=== PATIENT | female | born 2000 | race Caucasian/White ===

== ENCOUNTER 2022-03-17 07:40 | Emergency (ER) | payer MEDICAID, SELFPAY ==
[2022-03-17 07:47] VITALS: BP 130/69; PULSE 108; RESP 16; TEMP 36.8; O2SAT 98; BMI 44.2
[2022-03-17 07:54] VITALS: BP 130/69; PULSE 108; RESP 16; TEMP 36.8; O2SAT 98
--- NOTE | 2022-03-17 07:56 | ED.URI ---
HPI - URI/Sore Throat General Chief Complaint: Upper Respiratory Symptoms Stated Complaint: sorethroat Time Seen by Provider: 03/17/22 07:42 Source: patient Mode of arrival: ambulatory Limitations: no limitations History of Present Illness MD elicited complaint: sore throat Pertinent past history: other (tonsillitis) Onset (ago): day(s) (2) Consistency: constant Severity: moderate Description of mucous: clear Able to tolerate fluids by mouth: Yes Exacerbating factors: swallowing Relieving factors: nothing Context: other (hx of prior tonsillitis in the past) Associated symptoms: denies other symptoms Treatments prior to arrival: none Related Data Previous Rx's Medication Instructions Recorded amoxicillin 500 mg tablet 500 mg PO BID 10 Days #20 tab 03/17/22 Allergies Allergy/AdvReac Type Severity Reaction Status Date / Time No Known Allergies Allergy Verified 03/17/22 07:50 Review of Systems Review of Systems: Constitutional : no Fever, no Chills, no fatigue, no Malaise ENT/Mouth : positive sore throat, no runny nose Eyes: No Discharge Cardiovascular : No Chest Pain, No SOB Respiratory : No Cough, No Sputum Gastrointestinal : No Nausea, No Vomiting, No Diarrhea Genitourinary : No Dysuria, No Urinary Frequency Musculoskeletal : no Myalgia Skin : No rash Neuro : No Headache PMFSH Past Medical History Attestation statement: The following information was validated with the patient. Medical History Tonsillitis Social History Social History (Updated 03/17/22 @ 08:06 by Stephanie See DO) Patient Tobacco Use Status: Current everyday Tobacco user Advance Directives: No Advance Directives Information Provided: No Patient : No Physical Exam Vital Signs: Vital Signs: Last Vital Signs Temp 98.2 F 03/17/22 07:54 Pulse 108 H 03/17/22 07:54 Resp 16 03/17/22 07:54 BP 130/69 03/17/22 07:54 Pulse Ox 98 03/17/22 07:54 BMI result Body Mass Index 44.2 Appearance: Alert. Oriented X3. No acute distress. Eyes: Pupils equal, round and reactive to light. ENT: Pharynx moderate swelling of the tonsils not touching, uvula midline, patches noted - tolerating secretions, normal voice Neck: Normal inspection. Neck supple. CVS: Normal heart rate and rhythm. Pulses normal. Respiratory: No respiratory distress. Breath sounds normal. Abdomen: Soft and non-tender. Skin: Skin warm and dry. Normal skin color. Extremities: No lower extremity edema. Neuro: Oriented X 3. No motor deficit. No sensory deficit. MDM - URI/Sore Throat MDM Narrative Medical decision making narrative: 22 yo female hx of tonsillitis here with swelling and white patches no signs of [employer], no signs of deeper space infection - at this time will need strep swab, covid/flu swab and start on amoxicillin. Lab Data Labs: Lab Results 03/17/22 03/17/22 03/17/22 Range/Units 08:01 08:01 08:01 COVID-19 ([facility]) Negative (Negative) COVID-19 Clin Com See Note Influenza Type A ([facility]) Negative (Negative) Influenza Type B ([facility]) Negative (Negative) Influenza A & B Note See Note S. pyogenes GrpA [facility] Negative (Negative) Discharge Plan Discharge Clinical Impression: Acute tonsillitis Patient Disposition: Home, Self-Care Instructions: Tonsillitis (ED) Additional Instructions: return to ED for any worsening symptoms or concerns negative for flu and covid strep negative but tonsillitis can be caused by other bacteria please take antibiotics Prescriptions: New amoxicillin 500 mg tablet 500 mg PO BID 10 Days Qty: 20 0RF
[2022-03-17] MEDS: Amoxicillin 500 MG CAPSULE PO (08:17)
[2022-03-17 08:22] LABS: IDNOW Serial# 08D9AD1C; Strep A Nucleic Acid Negative (Negative)
[2022-03-17 08:26] LABS: COVID-19 Test Negative (Negative); IDNOW Serial# 16C4AD1C; Influenza A Negative (Negative); Influenza B2 Negative (Negative)
== END 2022-03-17 09:05 | disposition home or self-care (01) ==
PROVIDERS: Emergency Provider Emergency Medicine
DX: J03.90 Acute tonsillitis, unspecified (principal); Z20.822 Contact with and (suspected) exposure to COVID-19
CPT/HCPCS: 87502; 87635; 87651; 99283

== ENCOUNTER 2022-05-16 11:09 | Emergency (ER) | payer MEDICAID, SELFPAY ==
[2022-05-16 11:18] VITALS: BP 116/64; PULSE 76; RESP 18; TEMP 36.1; O2SAT 98; BMI 42.5
--- NOTE | 2022-05-16 11:48 | ED_ITS ---
HPI - General Adult General Chief complaint: Extremity Injury, Lower Stated complaint: R foot/ankle pain Time Seen by Provider: 05/16/22 11:48 Source: patient Mode of arrival: ambulatory Limitations: no limitations History of Present Illness HPI narrative: Patient is a 22 year old female presenting to the emergency department today with chronic right ankle pain. Patient states that a few months ago, she fell down the stairs and hurt her right ankle. 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 Patient denies any dizziness, lightheadedness, abdominal pain, nausea, vomiting, fever, chills, blurry vision, double vision, loss of vision, chest pain, difficulty breathing, shortness of breath, back pain, night sweats, pain with urination, increased urinary frequency, increased urinary urgency, blood in her urine or stool, syncope or a near syncopal episode, recent trauma or falls, bowel incontinence, bladder incontinence, bowel retention, bladder retention, or any other complaints at this time. Onset (ago): month(s) Location: right and lower extremity (ankle) Radiation: non-radiation Severity: mild Severity scale (1-10): 2 Quality: dull Pain Consistency: constant Relieving factors: none Exacerbating factors: movement Associated symptoms: denies other symptoms Treatments prior to arrival: none Related Data Previous Rx's Medication Instructions Recorded amoxicillin 500 mg tablet 500 mg PO BID 10 days #20 tabs 03/17/22 Allergies Allergy/AdvReac Type Severity Reaction Status Date / Time No Known Allergies Allergy Verified 03/17/22 07:50 Review of Systems Constitutional: Constitutional: Reports no additional constitutional complaints, Denies chills, Denies fever(s) and Denies night sweats Eyes: Eyes: Reports no additional eye complaints, Denies blurry vision, Denies change in vision, Denies diplopia, Denies eye discharge, Denies loss of vision and Denies eye pain ENT: Denies dizziness Cardiovascular: Cardiovascular: Reports no additional cardiovascular complaints, Denies chest pain, Denies lightheadedness, Denies Loss of Consciousness and Denies dyspnea Respiratory: Respiratory: Reports no additional respiratory complaints and Denies dyspnea Gastrointestinal: Gastrointestinal: Reports no additional gastrointestinal complaints, Denies abdominal pain, Denies melena, Denies hematochezia, Denies change in bowel habits and Denies change in stool character Genitourinary: Genitourinary: Denies hematuria, Denies urinary frequency, Denies dysuria, Denies urinary incontinence, Denies urinary hesitancy and Denies urinary urgency Musculoskeletal: Musculoskeletal: Reports no additional musculoskeletal complaints, Denies numbness and Denies tingling Comments: right ankle pain Neurologic: Denies dizziness, Denies loss of vision, Denies numbness and Denies tingling Psychiatric: Psychiatric: Reports no additional psychiatric complaints Endocrine: Endocrine: Reports no additional endocrine complaints Hematologic/Lymphatic: Hematologic/Lymphatic: Reports no additional hematologic/lymphatic complaints Allergic/Immunologic: Allergic/Immunologic: Reports no additional allergic/immunologic complaints PMFSH Past Medical History Attestation statement: The following information was validated with the patient. Source: old records reviewed Medical History Tonsillitis Social History Social History Patient Tobacco Use Status: Current everyday Tobacco user Physical Exam ED Vital Signs: Vital Signs - 24 hr 05/16/22 11:18 Temperature 96.9 F Pulse Rate 76 Respiratory Rate 18 Blood Pressure 116/64 Pulse Oximetry 98 Oxygen Delivery Method Room Air BMI result Body Mass Index 42.5 Const General: cooperative, no acute distress, alert and awake Nutritional Appearance: well nourished Orientation/consciousness: patient oriented x3 Limitations: no limitations HENMT Head: Yes normal to inspection and Yes atraumatic Ears: hearing grossly normal bilaterally and external ears normal General nose exam: Normal external nose present, no nasal discharge noted and no epistaxis Face and sinus: Yes normal facial exam, No abrasion and No laceration Mouth: Normal oral and palatal mucosa present, no drooling and no muffled voice Eyes General: appearance normal, both eyes and all related structures Periorbital: periorbital findings normal Eyelids: Yes eyelids normal Conjunctivae: conjunctivae normal Pupils: Equal, round and reactive pupils present EOM: EOMs intact bilaterally Neck Neck: Yes normal visual inspection, Yes full ROM and Yes no lymphadenopathy Chest Chest palpation & inspection: normal inspection of the chest Resp Effort & Inspection: normal respiratory effort and able to speak in complete sentences Auscultation: clear to auscultation bilaterally Cardio Rate: regular rate Rhythm: regular rhythm GI Inspection: Yes normal to inspection Neuro General: patient oriented x3 and moves all extremities Cranial nerves: Yes Equal, round and reactive pupils present Cognition (Neuro): normal cognition Motor exam (neuro): 5/5 motor strength present throughout Sensory Exam: Normal double simultaneous stimulation for sensation Coordination: [id number] test normal Extrem General: Yes normal to inspection, Yes full ROM and Yes capillary refill normal Psych Appearance: grossly normal Mental Status: mental status grossly normal Affect: normal affect Attitude: cooperative Thought process: Normal thought process present Thought content: Normal thought content present Insight: Good insight present (Psych) Procedures Orthopedic Splinting/Casting Injury #1: Side: right Lower Extremity Injury Location: ankle Lower Extremity Immobilizer: boot orthosis Medical Decision Making MDM Narrative Medical decision making narrative: Patient is a 22 year old female presenting to the emergency department today with right ankle pain. Patient's physical exam was unremarkable. I explained my physical exam findings to the patient. I answered all questions asked by the patient. Patient's foot was placed in a walking boot, without incident. Patient's PMS was intact prior to and after boot placement. I stressed the importance of the patient taking her medication as prescribed. I stressed the importance of the patient following up with her primary care provider and an orthopedic provider. I stressed the importance of the patient returning to the emergency department immediately if her symptoms were to worsen or if she were to develop any dizziness, shortness of breath, difficulty breathing, chest pain, blurry vision, loss of vision, nausea, vomiting, abdominal pain, fever, chills, back pain, or any other complaints. Patient verbalized agreement and understanding with this treatment plan and discharge. Differential Diagnosis Differential Diagnosis: ankle pain Medical Records Medical records reviewed: Yes I reviewed the patient's medical records. Discharge Plan Discharge Clinical Impression: Ankle pain, chronic Patient Disposition: Home, Self-Care Instructions: Ankle Sprain (ED) Additional Instructions: Follow up with your primary care provider. Return to the emergency department immediately if your symptoms worsen or if you develop any dizziness, shortness of breath, difficulty breathing, chest pain, blurry vision, loss of vision, nausea, vomiting, abdominal pain, fever, chills, back pain, or any other complaints. Prescriptions: No Action amoxicillin 500 mg tablet 500 mg PO BID 10 Days Qty: 20 0RF Referrals: [facility] [place] Family Medicine [Provider Group] (Call to establish and follow up with a primary care provider. If you already have one, please follow up with them. ) [facility] [place] Primary Care, Gunnar [Provider Group] (Call to establish and follow up with a primary care provider. If you already have one, please follow up with them. ) [facility] [place] Primary Care,Abhilash [Provider Group] (Call to establish and follow up with a primary care provider. If you already have one, please follow up with them. ) [facility] [place] Orth[facility] Surgeons [Provider Group] (Call to establish and follow up with an orthopedic provider. ) Stand Alone Forms: Work/School Release Print Language: German
== END 2022-05-16 12:48 | disposition home or self-care (01) ==
PROVIDERS: Emergency Provider Emergency Medicine Emergency Medical Services
DX: M25.571 Pain in right ankle and joints of right foot (principal)
CPT/HCPCS: 99282

== ENCOUNTER 2022-09-05 19:53 | Emergency (ER) | payer OTHER, SELFPAY ==
--- NOTE | ~2022-09-05 | US_ITS ---
EXAMINATION: US VENOUS ULTRASOUND WITH DOPPLER LOWER EXTREMITY, LEFT CLINICAL INFORMATION: Pain and swelling COMPARISON: None TECHNIQUE: Ultrasound of the deep veins is performed from the hip to the calf with compression sonography and color and pulse Doppler assessment. Spectral analysis with color-flow imaging is performed. FINDINGS: There is normal venous compression and respiratory variation and augmented flow. The visualized common femoral vein, superficial femoral vein, profunda femoral vein, popliteal vein, and the trifurcation region shows no evidence of deep venous thrombosis. There is no significant popliteal fossa cyst. If the patient's symptoms persist, followup ultrasound in 5 days 7 days might be of value to exclude proximal propagation from a non-visualized calf vein. US/US venous duplex LE LT IMPRESSION: No DVT demonstrated in the left lower extremity.
[2022-09-05 20:04] VITALS: BP 112/60; PULSE 82; RESP 18; TEMP 36.2; O2SAT 98; BMI 40.7
--- NOTE | 2022-09-05 20:29 | ED.EXTPRO ---
HPI - Extremity Problem General Chief complaint: Extremity Problem Stated complaint: left leg pain Time Seen by Provider: 09/05/22 20:17 Source: patient Mode of arrival: ambulatory Limitations: no limitations History of Present Illness HPI Narrative: 22-year-old female with a history of sciatica presents the emergency department with left calf pain & left foot numbness and tingling x 1 week. Patient states she was standing at work and felt her leg give out, however she did not fall to the ground. Patient states that the numbness and tingling is throughout her entire left foot and extends to the ankle. She rates her pain as a 10/10. Additionally she has shooting pain throughout her left lower extremity and into her back, she tells me this feels sort of like her typical sciatica. Patient states she has tried [id number] medication, heat, ice, ointment with no symptom relief. Patient denies fever, chest pain, shortness of breath, dizziness, nausea, vomiting, saddle paresthesias, bladder/bowel incontinence/retention, weakness. Patient denies hx of blood clots, recent travel, blood thinners, OCPs, non smoker, no known hypercoagulable disorders. Additionally, patient concern for gonorrhea and Chlamydia, she tells me she is currently sexually active and is concerned her partner may have something. She denies any symptoms at this time however would like treatment for gonorrhea and chlamydia. She would not like a pelvic exam. Related Data Previous Rx's Medication Instructions Recorded amoxicillin 500 mg tablet 500 mg PO BID 10 days #20 tabs 03/17/22 cyclobenzaprine 10 mg tablet 10 mg PO BEDTIME PRN muscle spasm 09/05/22 #7 tabs doxycycline hyclate 100 mg capsule 100 mg PO BID 10 days #20 caps 09/05/22 metronidazole 500 mg tablet 500 mg PO BID 7 days #14 tabs 09/05/22 Allergies Allergy/AdvReac Type Severity Reaction Status Date / Time No Known Allergies Allergy Verified 03/17/22 07:50 Review of Systems Review of Systems: Constitutional : No Weight loss, No Fever, No Chills, No Fatigue, No Malaise ENT/Mouth : No sore throat, No Rhinorrhea Eyes: No Eye Pain, No Swelling, No Redness Cardiovascular : No Chest Pain, No SOB, No Dyspnea on Exertion, No Orthopnea, No Edema, No Palpitations Respiratory : No Cough, No Sputum, No Wheezing Gastrointestinal : No Nausea, No Vomiting, No Diarrhea, No Constipation, No abdominal Pain, No Hematochezia, No Melena Genitourinary : No Dysuria, No Urinary Frequency, No Hematuria, Musculoskeletal : + joint pain, No Myalgias, No Joint Swelling Skin : No Skin Lesions, No rash Neuro : No Weakness, No Numbness, No Dizziness, No Headache Psych : No Anxiety/Panic, No Depression All other systems reviewed and are negative Yes all other systems are reviewed and are negative [facility] Past Medical History Attestation statement: The following information was validated with the patient. Source: old records reviewed and nursing notes reviewed Medical History Tonsillitis Social History Social History Patient Tobacco Use Status: Current everyday Tobacco user Advance Directives: No Advance Directives Information Provided: No Physical Exam Vital Signs: Vital Signs: Last Vital Signs Temp 97.2 F 09/05/22 20:04 Pulse 82 09/05/22 20:04 Resp 18 09/05/22 20:04 BP 112/60 09/05/22 20:04 Pulse Ox 98 09/05/22 20:04 O2 Del Method 09/05/22 20:04 BMI result Body Mass Index 40.7 vss Appearance: Alert.? Oriented X3.? No acute distress.? Head: Normocephalic, atraumatic, no step-offs or deformities Eyes: Pupils equal, round and reactive to light.? Neck: Normal inspection.? Neck supple.? CVS: Normal heart rate and rhythm.? Pulses normal.? Respiratory: No respiratory distress.? Breath sounds normal.? Abdomen: Soft and nontender.? Skin: Skin warm and dry.? Normal skin color.? Normal skin turgor.? Extremities: No lower extremity edema.? No calf ttp. 5/5 strength to right lower extremity. 2+ patellar reflexes equal bilateral. 2+ dorsalis pedis, posterior tibialis and anterior tibialis pulses equal bilateral. Negative Mirtha bilaterally. Back: No midline tenderness, no C-spine tenderness, full range of motion, no CVA tenderness bilaterally Neuro: Oriented X 3.? No motor deficit.? No sensory deficit. CN 2-12 intact . Patient ambulating with steady gait. Course Reevaluation(s) Reevaluation #1: CBC with slight leukocytosis likely secondary to pain, no upper respiratory symptoms, no concerns for bacterial infection at this time. Chemistry with no acute findings, bilirubin slightly elevated however no abdominal tenderness to palpation on exam. Coags within normal limits. COVID negative. Patient has been able to ambulate without difficulties while in the department. Ultrasound of the left lower extremity with no DVT in the left lower extremity. Patient feeling better I suspect that this is musculoskeletal pain. At this time patient will be discharged home. Advised to return with new or worsening symptoms. I explained to her if symptoms persist in 5-7 days she may require a repeat ultrasound. At this time I feel comfortable discharge home with prompt return with new or worsening symptoms and prompt PCP follow-up. Time: 22:37 MDM - Extremity (Nontraumatic) MDM Narrative Medical decision making narrative: 22-year-old female presents to the emergency department with a complaint of numbness and tingling in her left foot Physical exam benign. Likely musculoskeletal pain or sciatica. Low suspicion for DVT however will rule out. History and physical examination not consistent with cauda equina or epidural abscess. Plan is to obtain ultrasound. Patient agrees to prophylactic treatment for gonorrhea, chlamydia and trichomonas. 500mg IM ceftriaxone has been given here and scripts for doxycycline 100 mg po BID X 7 days and metronidazole 500 mg po BID X 7 days have been given to the patient. Educated on safe sex practices, full pannel STD testing and speaking to? partners on possible STD. Medical Records Attestation: I reviewed the patient's medical records. Lab Data Attestation: I reviewed the patient's lab results. Result diagrams: 09/05/22 20:54 09/05/22 20:54 Labs: Lab Results 09/05/22 09/05/22 09/05/22 Range/Units 20:54 20:54 20:54 WBC 12.3 H (4.8-10.8) X10*3/uL RBC 4.75 (4.20-5.50) X10*6/uL Hgb 12.8 (12.0-16.0) g/dl Hct 39.4 (37.0-47.0) % MCV 82.9 (80.0-98.0) fL MCH 26.9 L (27.0-33.0) pg MCHC 32.5 (31.0-35.0) g/dl RDW 13.5 (11.0-16.0) % Plt Count 325 (160-400) X10*3/uL MPV 9.6 (9.4-12.3) fL Immature Gran % (Auto) 0.4 (0.0-0.4) % Neut % (Auto) 70.5 (45-73) % Lymph % (Auto) 22.9 (20-40) % Faulk % (Auto) 5.0 (2-11) % Eos % (Auto) 0.6 (0-4) % Baso % (Auto) 0.6 (0-2) % Lymph # (Auto) 2.8 (1.2-4.9) X10*3/uL Faulk # (Auto) 0.6 (0.1-1.2) X10*3/uL Eos # (Auto) 0.1 (0.0-0.4) X10*3/uL Baso # (Auto) 0.1 (0.0-0.2) X10*3/uL Abs Immat Gran (auto) 0.05 H (0.00-0.03) X10*3/uL Absolute Neuts (auto) 8.7 H (2.0-8.3) x10*3/uL Absolute Nucleated RBC 0.000 (0.0-0.012) X10*3/uL Nucleated RBC % (auto) 0.0 (0.0-0.2) /100WBC PT 12.2 (10.0-13.1) SEC INR 1.1 (0.9-1.1) Sodium 140 (135-145) mmol/L Potassium 3.8 (3.3-5.1) mmol/L Chloride 103 (96-108) mmol/L Carbon Dioxide 24 (22-29) mmol/L Anion Gap 17 (12-20) BUN 13 (9-16) mg/dL Creatinine 0.86 (0.5-1.4) mg/dL Estim Creat Clear Calc 118.5 Estimated GFR > 60 Random Glucose 89 (60-115) mg/dL Calcium 9.4 (8.4-10.2) mg/dL Total Bilirubin 1.3 H (0.0-1.0) mg/dL AST 26 (5-31) U/L ALT 35 H (0-31) U/L Alkaline Phosphatase 81 (39-117) U/L Total Protein 7.3 (6.5-8.0) g/dL Albumin 4.4 (3.5-5.0) g/dL Critical Care Time Critical Care Time Critical Care Time: No Discharge Plan Discharge Clinical Impression: Leg pain, left, Encounter for assessment of STD exposure Patient Disposition: Home, Self-Care Instructions: Leg Cramps (ED), Leg Pain (ED) Additional Instructions: Take your medications as prescribed. If you were prescribed antibiotics today, it is important that you take your medication to their entirety, do not skip any doses, do not finish them early. Follow-up with your primary care provider this week. Return to the emergency department with new or worsening symptoms. Such as fevers, chills, chest pain, shortness of breath, nausea, vomiting, dizziness, headache, vision changes, lethargy In case of emergency call 911 You were treated here today with ceftriaxone, a medication that treats gonorrhea. I have sent to your pharmacy Metronidazole that covers trichomonas, and Doxycycline which covers for chlamydia. Please be reevaluated by a healthcare provider after completing your antibiotics. Do not stop them early, do not skip any doses. Until you are reevaluated by a health care provider please practice safe sex as disucussed. Please also have a conversation with your sexual partners.? I also advise you to obtain full panel STD testing to test for other STDs including HIV, Hepatitis B & C and syphilis with your PCP or a local clinic. US/US venous duplex LE LT IMPRESSION: No DVT demonstrated in the left lower extremity. If the patient's symptoms persist, followup ultrasound in 5 days 7 days might be of value to exclude proximal propagation from a non-visualized calf vein. Prescriptions: New doxycycline hyclate 100 mg capsule 100 mg PO BID 10 Days Qty: 20 0RF metronidazole 500 mg tablet 500 mg PO BID 7 Days Qty: 14 0RF cyclobenzaprine 10 mg tablet 10 mg PO BEDTIME PRN (Reason: muscle spasm) Qty: 7 0RF No Action amoxicillin 500 mg tablet 500 mg PO BID 10 Days Qty: 20 0RF Referrals: Physician,Unknown J [Primary Care Provider] - 2 days Stand Alone Forms: Work/School Release
[2022-09-05 21:01] LABS: MANUAL DIFF FLAG NO
[2022-09-05 21:02] LABS: Basophils Absolute Auto 0.1 X10*3/uL (0.0-0.2); Basophils Percent Auto 0.6 % (0-2); Eosinophils Absolute Auto 0.1 X10*3/uL (0.0-0.4); Eosinophils Percent Auto 0.6 % (0-4); Hematocrit 39.4 % (37.0-47.0); Hemoglobin 12.8 g/dl (12.0-16.0); Imm Gran Abs Auto 0.05 X10*3/uL (0.00-0.03); Imm Gran Pct Auto 0.4 % (0.0-0.4); Lymphocytes Absolute Auto 2.8 X10*3/uL (1.2-4.9); Lymphocytes Percent Auto 22.9 % (20-40); Mean Corpuscular HGB Conc 32.5 g/dl (31.0-35.0); Mean Corpuscular Hemoglobin 26.9 pg (27.0-33.0); Mean Corpuscular Volume 82.9 fL (80.0-98.0); Mean Platelet Volume 9.6 fL (9.4-12.3); Monocytes Absolute Auto 0.6 X10*3/uL (0.1-1.2); Neutrophils Absolute Auto 8.7 x10*3/uL (2.0-8.3); Neutrophils Percent Auto 70.5 % (45-73); Platelet Count 325 X10*3/uL (160-400); Red Blood Count 4.75 X10*6/uL (4.20-5.50); Red Cell Distribution Width 13.5 % (11.0-16.0); White Blood Count 12.3 X10*3/uL (4.8-10.8)
[2022-09-05 21:09] LABS: INTERNATIONAL NORM RATIO 1.1 (0.9-1.1); Prothrombin Time 12.2 SEC (10.0-13.1)
[2022-09-05 21:16] LABS: Alanine Aminotransferase 35 U/L (0-31); Albumin Level 4.4 g/dL (3.5-5.0); Alkaline Phosphatase 81 U/L (39-117); Anion Gap 17 (12-20); Aspartate Amino Transferase 26 U/L (5-31); Bilirubin Total 1.3 mg/dL (0.0-1.0); Blood Urea Nitrogen 13 mg/dL (9-16); Calcium 9.4 mg/dL (8.4-10.2); Carbon Dioxide 24 mmol/L (22-29); Chloride 103 mmol/L (96-108); Creatinine Clr Calc Pharmacy 118.5; Estimated Glomerular Filt Rate > 60; Glucose Random 89 mg/dL (60-115); Potassium 3.8 mmol/L (3.3-5.1); Sodium 140 mmol/L (135-145); Total Protein 7.3 g/dL (6.5-8.0)
[2022-09-05] MEDS: Ketorolac Tromethamine 30 MG/ML VIAL IM (21:23)
[2022-09-05] MEDS: metroNIDAZOLE 500 MG TABLET PO (21:23)
[2022-09-05] MEDS: cefTRIAXone sodium 500 MG, Lidocaine HCl 1 % MPF 1 ML IM (21:49)
== END 2022-09-05 23:12 | disposition home or self-care (01) ==
PROVIDERS: Physician Assistant; Emergency Provider Student in an Organized Health Care Education/Training Program
DX: M79.605 Pain in left leg (principal); Z20.2 Contact with and (suspected) exposure to infections with a predominantly sexual mode of transmission
CPT/HCPCS: 36415; 80053; 85025; 85610; 93971; 96372; 99283; 99284; J0696; J1885

== ENCOUNTER 2022-09-25 09:43 | Emergency (ER) | payer OTHER, SELFPAY ==
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
[2022-09-25 09:53] VITALS: BP 113/58; PULSE 70; RESP 16; TEMP 36.6; O2SAT 98; BMI 40.7
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
--- NOTE | 2022-09-25 12:23 | PC.NURSE ---
PT EVALUATED BY PROVIDER PT AWAKE, ALERT AND ORIENTED X 3. SKIN WARM AND DRY. RESP UNLABORED. DENIES N/V. NEUROS INTACT. +CMS. AMBULATORY, GAIT STEADY
== END 2022-09-25 12:27 | disposition home or self-care (01) ==
PROVIDERS: Emergency Provider Emergency Medicine
DX: M25.511 Pain in right shoulder (principal); F17.200 Nicotine dependence, unspecified, uncomplicated; Z71.6 Tobacco abuse counseling; Z79.899 Other long term (current) drug therapy
CPT/HCPCS: 73030; 99282; 99283

== ENCOUNTER 2024-09-07 06:40 | Emergency (ER) | payer OTHER, SELFPAY ==
[2024-09-07 06:45] VITALS: BP 124/69; PULSE 84; RESP 16; TEMP 36.7; O2SAT 99; BMI 46.1
[2024-09-07 07:15] VITALS: BP 118/53; PULSE 73; RESP 18; O2SAT 97
--- NOTE | 2024-09-07 07:28 | ED_ITS ---
HPI - Back Pain/Injury General Chief Complaint: Back Pain/Injury Stated Complaint: cough, back pain Time Seen by Provider: 09/07/24 07:10 Source: patient Mode of arrival: ambulatory Limitations: no limitations History of Present Illness ED Provider: LENA BEAULIEU Narrative: 24 yo female with prior disc herniation here with c/o resolved URI feeling much better but coughed very hard 2 days ago and felt a pop at her lower lumbar spine and since then severe pain with spasm across lower back and in both hips. No b/b incontinence, no saddle anesthesia, no IVDA, no fevers, no blood thinners. She tried motrin with little relief. She has a brace on that is helping. 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 MD elicited complaint: back pain and back injury Pertinent past history: prior back pain Onset (ago): day(s) (2) Timing: constant Severity: moderate Similar Symptoms Previously: Yes Quality: throbbing Location: lumbar spine Radiation: other (hips) Exacerbating factors: movement Relieving factors: none Context: other (coughing) Associated symptoms: denies other symptoms Treatments prior to arrival: cold therapy, heat therapy and NSAIDS Work related injury: No Related Data Previous Rx's ?Medication ?Instructions ?Recorded diazepam 5 mg tablet (Valium) 5 mg PO TID PRN muscle spasm #10 09/07/24 tabs lidocaine 5 % topical patch 1 patch topical DAILY #30 ea 09/07/24 prednisone 20 mg tablet 40 mg (2 x 20 mg) PO DAILY 4 days 09/07/24 #8 tabs Allergies Allergy/AdvReac Type Severity Reaction Status Date / Time peach Allergy Intermediate Hives Verified 09/07/24 06:47 Review of Systems Review of Systems: Constitutional : No Weight loss, No Fever, No Chills, ENT/Mouth : No Hearing loss, No Ear Pain, No Nasal Congestion, No Sinus Pain, No Hoarseness, No sore throat, No Rhinorrhea, No Swallowing Difficulty Cardiovascular : No Chest Pain, No SOB Respiratory : No Cough, No Dyspnea Gastrointestinal : No Nausea, No Vomiting, No Diarrhea, No abdominal Pain, No Hematochezia, No Melena Genitourinary : No Dysuria, No Urinary Frequency, No Hematuria, No Urinary Incontinence, Musculoskeletal : positive back pain Skin : No Skin Lesions, No rash Neuro : No Weakness, No Numbness, No Paresthesias, no loss of bowel or bladder incontinence, no saddle anesthesia alll other systems reviewed and are negative [facility] Past Medical History Attestation statement: The following information was validated with the patient. Source: old records reviewed Medical History Tonsillitis Social History Social History Housing: House Patient Tobacco Use Status: Former Tobacco user e-Cigarette/Vaping Use: Never Used Use of substances other than those prescribed or required for medical reasons: Yes Substance Use Type: Marijuana Advance Directives: No Advance Directives Information Provided: No Do you have a plan to hurt others: No Plan service: No Current occupational status: employed Current occupation: optometric aide Current occupational exposures/hazards: No Cognitive needs: No Hearing needs: No Vision needs: No Physical Exam Vital Signs: Vital Signs: Last Vital Signs Temp 98.1 F 09/07/24 06:45 Pulse 73 09/07/24 07:15 Resp 18 09/07/24 07:15 BP 118/53 L 09/07/24 07:15 Pulse Ox 97 09/07/24 07:15 O2 Del Method Room Air 09/07/24 06:45 BMI result Body Mass Index 46.1 Appearance: Alert. Oriented X3. No acute distress. Eyes: Pupils equal, round and reactive to light. ENT: Pharynx normal. Neck: Normal inspection. Neck supple. CVS: Normal heart rate and rhythm. Pulses normal. Respiratory: No respiratory distress. Breath sounds normal. Abdomen: Soft and nontender. Back: has brace on ttp along lower paraspinal lumbar area Skin: Skin warm and dry. Normal skin color. Normal skin turgor. Extremities: No lower extremity edema. No calf ttp Neuro: Oriented X 3. No motor deficit. No sensory deficit. L5 5/5 bilaterally 2+ DTR in patella SILT intact LE Medications Administered Discontinued Medications Generic Name Dose Route Start Last Admin Trade Name Freq PRN Reason Stop Dose Admin Diazepam 5 mg 09/07/24 07:28 09/07/24 07:38 Diazepam 5 Mg Tablet PO 09/07/24 07:29 5 mg ONCE ONE Administration Ketorolac Tromethamine 30 mg 09/07/24 07:28 09/07/24 07:36 Ketorolac Tromethamine 30 Mg/Ml Vial IM 09/07/24 07:29 30 mg ONCE ONE Administration Prednisone 40 mg 09/07/24 07:28 09/07/24 07:38 Prednisone 20 Mg Tablet PO 09/07/24 07:29 40 mg ONCE ONE Administration Medical Decision Making Medical Decision Making [facility] Narrative: 24 yo female with PMH of back pain here with c/o feeling pain and pop in lower spine after coughing - she has no red flags on exam and no symptoms of cauda equina. At this time will start on steroids, muscle relaxer and anti- inflammatory. She denies trauma. She is NV intact and abdomen is benign. She reports her URI is resolved. She will be asked to see PCP for PT. Differential Diagnosis Differential Diagnoses: The differential diagnosis associated with the presentation includes spasm, disc herniation Admission/Observation Consideration of admission/observation: Escalation of care including admission/observation considered feels better stable for DC Independent Historian Clinical information obtained from an independent historian. History obtained from or confirmed by: Friend External Record Review External record reviewed: Outpatient record Prescription Management I considered prescription management with: Pain Medication and Other Discharge Plan Discharge Clinical Impression: Lumbar radiculopathy Patient Disposition: Home, Self-Care Instructions: Acute Low Back Pain (ED), Lumbar Radiculopathy (ED) Additional Instructions: return for worsening pain, numbness, weakness, loss of control of bowel or bladder no lifting more than 10lbs for 2 weeks can take motrin and tylenol for pain as well but with food next dose of motrin in 8 hours after shot in ED follow up with your doctor for physical therapy Prescriptions: New prednisone 20 mg tablet 40 mg PO DAILY 4 Days Qty: 8 0RF lidocaine 5 % adhesive patch,medicated 1 patch topical DAILY Qty: 30 0RF Rx Instructions: leave on most painful area for up to 12 hrs diazepam [Valium] 5 mg tablet 5 mg PO TID PRN (Reason: muscle spasm) Qty: 10 0RF Rx Instructions: partial fill is okay Stand Alone Forms: Work/School Release Print Language: Icelandic
[2024-09-07] MEDS: Ketorolac Tromethamine 30 MG/ML VIAL IM (07:36)
[2024-09-07] MEDS: diazePAM 5 MG TABLET PO (07:38)
[2024-09-07] MEDS: predniSONE 20 MG TABLET 40 MG PO (07:38)
[2024-09-07 08:42] VITALS: BP 125/65; PULSE 71; RESP 16; TEMP 36.6; O2SAT 97
[2024-09-07 08:45] VITALS: BP 125/65; PULSE 71; RESP 18; TEMP 36.6; O2SAT 98
== END 2024-09-07 08:46 | disposition home or self-care (01) ==
PROVIDERS: Emergency Provider Emergency Medicine
DX: M54.16 Radiculopathy, lumbar region (principal); M54.50 Low back pain, unspecified; R05.9 Cough, unspecified; M25.552 Pain in left hip; M25.551 Pain in right hip; Z79.899 Other long term (current) drug therapy
CPT/HCPCS: 96372; 99284; J1885